=== PATIENT | female | born 1975 | race Caucasian/White ===

== ENCOUNTER 2018-01-09 09:49 | Emergency (ER) | payer MEDICARE ==
[~2018-01-09] VITALS: Ht 165.1 cm; Wt 65.8 kg
[~2018-01-09 09:49] MED LIST: HYDR1TAB10 PO; LEVO500T59 PO; NAPR-514 PO
--- NOTE | 2018-01-09 10:34 | PHYS DOC ---
Past History Past Medical History: Anxiety, Bipolar, Schizophrenia Past Surgical History: Tubal ligation Alcohol Use: None Drug Use: None Adult General Chief Complaint Chief Complaint: BACK PAIN OR INJURY [facility] HPI 42-year-old female presents with thoracic back pain for the last 2 months. Patient states that it is getting worse. She does not think there was any trauma or inciting event. She describes the pain as a cramping sensation lateral to T8 on the right. She denies chest pain, shortness of breath, fever, chills. She states it is very painful but says it does not interfere with her life. She is still able to exercise by running. She has no other complaints. Review of Systems Review of Systems Constitutional: Denies fever or chills [] Eyes: Denies change in visual acuity, redness, or eye pain [] HENT: Denies nasal congestion or sore throat [] Respiratory: Denies cough or shortness of breath [] Cardiovascular: No additional information not addressed in HPI [] GI: Denies abdominal pain, nausea, vomiting, bloody stools or diarrhea [] : Denies dysuria or hematuria [] Musculoskeletal: Lateral right thoracic pain[] Integument: Denies rash or skin lesions [] Neurologic: Denies headache, focal weakness or sensory changes [] Endocrine: Denies polyuria or polydipsia [] All other systems were reviewed and found to be within normal limits, except as documented in this note. Allergies Allergies Allergies Coded Allergies Type Severity Reaction Last Updated Verified hydrocodone Allergy Unknown 03/12/15 Yes Physical Exam Physical Exam Constitutional: Well developed, well nourished, no acute distress, non-toxic appearance. [] HENT: Normocephalic, atraumatic, bilateral external ears normal, oropharynx moist, no oral exudates, nose normal. [] Eyes: PERRLA, EOMI, conjunctiva normal, no discharge. [] Neck: Normal range of motion, no tenderness, supple, no stridor. [] Cardiovascular:Heart rate regular rhythm, no murmur [] Lungs & Thorax: Bilateral breath sounds clear to auscultation. Mild tenderness to the eighth rib distribution. No obvious deformity [] Abdomen: Bowel sounds normal, soft, no tenderness, no masses, no pulsatile masses. [] Skin: Warm, dry, no erythema, no rash. [] Back: No tenderness, no CVA tenderness. [] Extremities: No tenderness, no cyanosis, no clubbing, ROM intact, no edema. [] Neurologic: Alert and oriented X 3, normal motor function, normal sensory function, no focal deficits noted. [] Psychologic: Affect normal, judgement normal, mood normal. [] Current Patient Data Vital Signs Vital Signs Date Time Temp Pulse Resp B/P (MAP) Pulse Ox O2 Delivery O2 Flow Rate FiO2 01/09/18 10:08 98.7 79 20 98 Room Air EKG EKG [] Radiology/Procedures Radiology/Procedures RIBS RIGHT AND PA CHEST History: RT SIDED PAIN INCREASING, NO KNOWN INJURY Comparison: July 17, 2015 chest radiographs Findings: Single view of the chest and 2 additional views right ribs are submitted. There is no infiltrate, pleural fluid, pneumothorax. No displaced right rib fracture is identified. Heart size is stable, within normal limits. Impression: 1. No acute radiographic abnormality is identified. Electronically signed by: Enrique Gonzalez MD (01/09/2018 11:01 AM) [id number] [] Course & Med Decision Making Course & Med Decision Making Pertinent Labs and Imaging studies reviewed. (See chart for details) Asians x-rays are negative for fracture or malalignment. It sounds as patient is having some kind of muscle spasms in this area of her body. We will try Flexeril to see if this helps. I have also advised that she establish with a PCP and consider physical therapy if necessary. [] Dragon Disclaimer Dragon Disclaimer This electronic medical record was generated, in whole or in part, using a voice recognition dictation system. Departure Departure: Referrals: STEF DORMAN MD (PCP) Scripts Cyclobenzaprine Hcl (CYCLOBENZAPRINE HCL) 10 Mg Tablet 1 TAB PO TID PRN for MUSCLE SPASMS MDD 30 tabs, #30 TAB Prov: DAMIÁN FITZPATRICK DO 01/09/18 DAMIÁN FITZPATRICK DO January 09, 2018 10:33
--- NOTE | 2018-01-09 11:05 | RAD ---
RIBS RIGHT AND PA CHEST History: RT SIDED PAIN INCREASING, NO KNOWN INJURY Comparison: July 17, 2015 chest radiographs Findings: Single view of the chest and 2 additional views right ribs are submitted. There is no infiltrate, pleural fluid, pneumothorax. No displaced right rib fracture is identified. Heart size is stable, within normal limits. Impression: 1. No acute radiographic abnormality is identified. Electronically signed by: Enrique Gonzalez MD (01/09/2018 11:01 AM) [facility]
[2018-01-09] MEDS ORDERED: CYCL-331 PO (11:08)
[2018-01-09 11:13] VITALS: BP 109/64
== END 2018-01-09 11:16 | disposition home or self-care (01) ==
LOC: ER 09:49
DX: M62.830 Muscle spasm of back (principal); M54.6 Pain in thoracic spine; R07.81 Pleurodynia; F41.9 Anxiety disorder, unspecified; F20.9 Schizophrenia, unspecified; F31.9 Bipolar disorder, unspecified; Z88.5 Allergy status to narcotic agent
CPT/HCPCS: 71101; 99284

== ENCOUNTER 2018-01-22 23:55 | Emergency (ER) | payer MEDICARE ==
[~2018-01-22] VITALS: Ht 166.4 cm; Wt 65.0 kg
[~2018-01-22 23:55] MED LIST changes: +CYCL-331 PO
--- NOTE | 2018-01-22 23:57 | ED.ADGEN ---
Past History Past Medical History: Anxiety, Bipolar, Schizophrenia Past Surgical History: Tubal ligation Alcohol Use: None Drug Use: None Adult General Chief Complaint Chief Complaint ".. My feet have been hurting for about a year.. they just hurt worse tonight.. and I am lock out [address] [address] I paid my rent...".." It raining out side..." HPI HPI Patient is a 42 year old female who presents with above hx and complaints generalized bilateral foot pain for past year. Pt. states pain is worse tonight. Distal neurovascular intact. Capillary refill less than 2 seconds. Dorsal Pedia and posterior pedal pulses are intact. Pt. denies any trauma. Patient denies any travel, or specific ill contacts. Patient denies any history of immunosuppression. Patient localizes pain primarily on arch and feet. Patient does not follow currently with her primary care. Patient does smoke heavily. Patient's primary concern tonight is she is locked out of her Apt. Pt. has past medical hx of Bipolar, Schizophrenia and Anxiety disorder. Review of Systems Review of Systems Constitutional: Denies fever or chills [] Eyes: Denies change in visual acuity, redness, or eye pain [] HENT: Denies nasal congestion or sore throat [] Respiratory: Denies cough or shortness of breath [] Cardiovascular: No additional information not addressed in HPI [] GI: Denies abdominal pain, nausea, vomiting, bloody stools or diarrhea [] : Denies dysuria or hematuria [] Musculoskeletal: Denies back pain or joint pain []Except complaints of bilateral foot pain. Integument: Denies rash or skin lesions [] Neurologic: Denies headache, focal weakness or sensory changes [] Endocrine: Denies polyuria or polydipsia [] All other systems were reviewed and found to be within normal limits, except as documented in this note. Family History Family History Noncontributory Current Medications Current Medications Current Medications Medications (Trade) Dose Ordered Sig/Andrew Start Time Stop Time Status Last Admin Dose Admin Ibuprofen (Motrin) 400 mg 1X ONCE 01/23/18 00:30 01/23/18 00:31 DC 01/23/18 01:37 400 MG Allergies Allergies Allergies Coded Allergies Type Severity Reaction Last Updated Verified hydrocodone Allergy Unknown 03/12/15 Yes Physical Exam Physical Exam Constitutional: no acute distress, non-toxic appearance. [] HENT: Normocephalic, atraumatic, bilateral external ears normal, oropharynx moist, no oral exudates, nose normal. []Poor dentition. Eyes: PERRLA, EOMI, conjunctiva normal, no discharge. [] Neck: Normal range of motion, no tenderness, supple, no stridor. [] Cardiovascular:Heart rate regular rhythm, no murmur [] Lungs & Thorax: Bilateral breath sounds equal with scattered wheezes on auscultation [] Abdomen: Bowel sounds normal, soft, no tenderness, no masses, no pulsatile masses. [] Skin: Warm, dry, no erythema, no rash. [] Back: No tenderness, no CVA tenderness. [] Kyphosis. Extremities: No tenderness, no cyanosis, no clubbing, ROM intact, no edema. [] Except noted foot exam. Neurologic: Alert and oriented X 3, normal motor function, normal sensory function, no focal deficits noted. [] Psychologic: Affect normal, judgement normal, mood normal. [] EKG EKG [] Radiology/Procedures Radiology/Procedures My interpretation of bilateral foot films shows no foreign body or acute fractures.[] Course & Med Decision Making Course & Med Decision Making Pertinent Labs and Imaging studies reviewed. (See chart for details). Patient follow-up primary care. Patient return if any concerns. Patient take ibuprofen 400 mg up to 4 times a day with food for foot pain. Patient wear arch supports. Encourage pt to stop smoking. [] Final Impression Final Impression 1. Foot Pain- Plantar Fascitis 2. Tob. Abuse 3. Anxiety Hx. 4. Bipolar 5. Schizophrenia Dragon Disclaimer Dragon Disclaimer This electronic medical record was generated, in whole or in part, using a voice recognition dictation system. FERNANDO CHAES MD Jan 22, 2018 23:57
[2018-01-23] MEDS ORDERED: IBUPROFEN 400 MG TABLET. PO ONE (00:30)
[2018-01-23 01:15] VITALS: BP 121/84
--- NOTE | 2018-01-23 08:41 | RAD ---
Indication: Bilateral foot pain TECHNIQUE: 3 views of the bilateral foot COMPARISON: None FINDINGS: Left side: No acute fracture or dislocation. Small plantar calcaneal spur is seen. No soft tissue abnormality. No joint space narrowing or productive changes to suggest arthritis. Right side: No acute fracture or dislocation. Small plantar calcaneal spur. No soft tissue abnormality. No joint space narrowing or productive changes to suggest arthritis. IMPRESSION: No acute findings. Mild bilateral hallux valgus deformity. Electronically signed by: Tico Summers DO (01/23/2018 8:37 AM) [facility]
== END 2018-01-23 01:45 | disposition home or self-care (01) ==
LOC: ER 23:55
DX: M72.2 Plantar fascial fibromatosis (principal); F41.9 Anxiety disorder, unspecified; F20.9 Schizophrenia, unspecified; F31.9 Bipolar disorder, unspecified; Z88.5 Allergy status to narcotic agent
CPT/HCPCS: 73630; 99284

== ENCOUNTER 2019-08-31 14:40 | Emergency (ER) | payer SELFPAY | END 2019-08-31 15:27 | disposition home or self-care (01) | LOC: ER 14:40 | DX: M79.676 Pain in unspecified toe(s) (principal); Z53.21 Procedure and treatment not carried out due to patient leaving prior to being seen by health care provider ==

== ENCOUNTER → 2020-01-24 | Outpatient (CLI) | payer SELFPAY | END | disposition home or self-care (01) | LOC: LAB 12:45 | PROVIDERS: ATTEND Podiatrist Foot & Ankle Surgery | DX: Z01.818 Encounter for other preprocedural examination (principal); Z11.59 Encounter for screening for other viral diseases | CPT/HCPCS: C9803; U0003; 87299 ==

== ENCOUNTER → 2020-05-07 | Outpatient (CLI) | payer MEDICARE ==
--- NOTE | 2020-05-07 16:37 | RAD ---
Three-view right foot study Clinical indications: Right foot pain. Postop study of 12 weeks. FINDINGS: Arthrodesis with metallic screws are seen involving the first metatarsal phalangeal joint. No complete osseous fusion of the joint space is seen yet. No lytic process or acute fracture or dislocation is seen. No periosteal reaction is evident. Moderate-sized plantar spur the calcaneus is seen. IMPRESSION: 12 weeks postop arthrodesis of the first metatarsal phalangeal joint. No complete osseous fusion is seen yet. No acute abnormality is evident. Electronically signed by: Ryan Ace MD (05/07/2020 4:34 PM) [id number]
== END | disposition home or self-care (01) ==
LOC: DXRAD 10:44
PROVIDERS: ATTEND Podiatrist Foot & Ankle Surgery
DX: M19.071 Primary osteoarthritis, right ankle and foot (principal); M77.31 Calcaneal spur, right foot
CPT/HCPCS: 73630

== ENCOUNTER → 2020-06-17 | Outpatient (CLI) | payer MEDICARE ==
--- NOTE | 2020-06-17 12:07 | RAD ---
EXAM: Right foot, 3 views. HISTORY: Pain. COMPARISON: 04/17/2020 FINDINGS: 3 views of the right foot are obtained. There is instrumented fusion of the first metatarsal phalangeal joint with 3 screws. There is associated degenerative and postoperative cortical irregularly along the joint space. There is no evidence of instrumentation loosening. There is a small plantar spur. There is dorsal forefoot soft tissue swelling. IMPRESSION: 1. Stable findings consistent with first metatarsal phalangeal joint arthrodesis. 2. Forefoot soft tissue swelling. Electronically signed by: Dulce Lizarraga MD (06/17/2020 12:04 PM) [id number]
== END ==
LOC: DXRAD 10:45
PROVIDERS: ATTEND Podiatrist Foot & Ankle Surgery
DX: M79.671 Pain in right foot (principal); M79.89 Other specified soft tissue disorders; Z98.1 Arthrodesis status
CPT/HCPCS: 73630

== ENCOUNTER → 2020-10-22 | Outpatient (CLI) | payer MEDICARE ==
--- NOTE | 2020-10-22 09:12 | EKG ---
[address] [address] Test Date: 2020-10-22 Test Time: 09:01:46 Pat Name: BERRY UMANA Department: Room: Gender: F Metal Coater: SERGIO : 1975 Requested By: STAFF NON Order Number: [id number] Reading MD: Roldan Bonilla MD Measurements Intervals [place] Rate: 82 P: 38 HI: 142 QRS: 12 QRSD: 80 T: 36 QT: 392 QTc: 461 Interpretive Statements SINUS RHYTHM Electronically Signed On 10-22-2020 13:28:39 [employer] by Roldan Bonilla MD
[2020-10-22 09:58] LABS: BASO % 0 % (0-3); EOS # 0.3 x10^3/uL (0.0-0.7); EOS % 3 % (0-3); HEMATOCRIT 41.1 % (36.0-47.0); HEMOGLOBIN 13.5 g/dL (12.0-15.5); LYMPH # 2.1 x10^3/uL (1.0-4.8); LYMPH % 19 % (24-48); MEAN CORPUSCULAR HEMOGLOBIN 31 pg (25-35); MEAN CORPUSCULAR HGB CONC 33 g/dL (31-37); MEAN CORPUSCULAR VOLUME 94 fL (79-100); MONO # 1.3 x10^3/uL (0.0-1.1); MONO % 12 % (0-9); NEUT # 7.2 x10^3uL (1.8-7.7); NEUT % 66 % (31-73); PLATELET COUNT 316 x10^3/uL (140-400); RED BLOOD COUNT 4.39 x10^6/uL (3.50-5.40); RED CELL DISTRIBUTION WIDTH 13.5 % (11.5-14.5); WHITE BLOOD COUNT 10.9 x10^3/uL (4.0-11.0)
[2020-10-22 13:41] LABS: CREATININE 0.9 mg/dL (0.6-1.0); GFR 68.3; POTASSIUM 4.9 mmol/L (3.5-5.1)
== END ==
LOC: LAB 08:44
PROVIDERS: ATTEND Podiatrist Foot & Ankle Surgery
DX: Z01.810 Encounter for preprocedural cardiovascular examination (principal); M19.071 Primary osteoarthritis, right ankle and foot
CPT/HCPCS: 36415; 80048; 85025; 93005

== ENCOUNTER → 2020-11-03 | Outpatient (CLI) | payer MEDICARE | LOC: LAB 13:34 | PROVIDERS: ATTEND Podiatrist Foot & Ankle Surgery | DX: Z11.59 Encounter for screening for other viral diseases (principal) | CPT/HCPCS: U0003 ==

== ENCOUNTER → 2021-08-03 | Outpatient (CLI) | payer MEDICARE ==
[~2021-08-03] MED LIST changes: -CYCL-331 PO; +CYCL10TA19 PO
--- NOTE | 2021-08-04 09:21 | CARD ---
MR#: [id number] Date of Study: 08/03/2021 Ordering Physician: NINO OLIVARES, Referring Physician: NINO OLIVARES, Tech: Shaila Davis [facility] APPROVED REPORT EXAM: Two-dimensional and M-mode echocardiogram with Doppler and color Doppler. Other Information Quality : AverageHR: 85bpm INDICATION Dyspnea Chest Pain RISK FACTORS Hypertension Smoking 2D DIMENSIONS RVDd3.4 (2.9-3.5cm)Left Atrium(2D)3.4 (1.6-4.0cm) IVSd1.3 (0.7-1.1cm)Aortic Root(2D)3.2 (2.0-3.7cm) LVDd4.2 (3.9-5.9cm)LVOT Diameter2.0 (1.8-2.4cm) PWd1.1 (0.7-1.1cm)LVDs2.8 (2.5-4.0cm) FS (%) 32.3 %SV47.7 ml Aortic Valve AoV Peak Julius.134.1cm/sAoV VTI27.8cm AO Peak GR.7.2mmHgLVOT Peak Julius.130.8cm/s LVOT VTI 25.47cmAO Mean GR.4mmHg FRANCIA (VMAX)3.70gr9PFV (VTI)2.89cm2 AI P 1/2 Ntzs810ew Mitral Valve MV E Hhxqleeb63.3cm/sMV E Peak Gr.3mmHg MV DECEL FMCK322siUV A Pmehszuf26.5cm/s MV E Mean Gr.1mmHgE/A Ratio1.4 Pulmonary Valve PV Peak Xznzytda14.4cm/sPV Peak Grad.3mmHg Tricuspid Valve TR P. Cpuvtpbh264ze/sRAP ZSEFTPIO2mrOe TR Peak Gr.01plJqKRKZ41avLu Pulmonary Vein S1 Kibrnpky57.1cm/sD2 Benuqbij58.2cm/s LEFT VENTRICLE The left ventricle is normal size. There is mild concentric left ventricular hypertrophy. The left ve ntricular systolic function is normal and the ejection fraction is within normal range. The Ejection Fraction is 50-55%. There is normal LV segmental wall motion. The left ventricular diastolic function and filling is normal for age. RIGHT VENTRICLE The right ventricle is normal size. There is normal right ventricular wall thickness. The right ventr icular systolic function is normal. ATRIA The left atrium size is normal. The right atrium size is normal. The interatrial septum is intact wit h no evidence for an atrial septal defect or patent foramen ovale as noted on 2-D or Doppler imaging. AORTIC VALVE The aortic valve is normal in structure and function. Doppler and Color Flow revealed trace aortic re gurgitation. There is no significant aortic valvular stenosis. Calculated aortic valve area is 3.2 cm 2 with maximum pressure gradient of 7 mmHg and mean pressure gradient of 4 mmHg. MITRAL VALVE The mitral valve is normal in structure and function. There is no evidence of mitral valve prolapse. There is no mitral valve stenosis. Doppler and Color Flow revealed no mitral valve regurgitation note d. TRICUSPID VALVE The tricuspid valve is normal in structure and function. Doppler and Color Flow revealed trace tricus pid regurgitation with an estimated PAP of 32 mmHg. There is no tricuspid valve stenosis. PULMONIC VALVE The pulmonary valve is normal in structure and function. Doppler and Color Flow revealed trace pulmon ic valvular regurgitation. GREAT VESSELS The aortic root is normal in size. The IVC is normal in size and collapses >50% with inspiration. PERICARDIAL EFFUSION There is no evidence of significant pericardial effusion. Critical Notification Critical Value: No <Conclusion> The left ventricle is normal size. The left ventricular systolic function is normal and the ejection fraction is within normal range. The Ejection Fraction is 50-55%. There is normal LV segmental wall motion. There is mild concentric left ventricular hypertrophy. Doppler and Color Flow revealed trace aortic regurgitation. There is no significant aortic valvular stenosis. Calculated aortic valve area is 3.2 cm2 with maximum pressure gradient of 7 mmHg and mean pressure gr adient of 4 mmHg. Doppler and Color Flow revealed no mitral valve regurgitation noted. Doppler and Color Flow revealed trace tricuspid regurgitation with an estimated PAP of 32 mmHg. Signed by : Tony Muñoz MD Electronically Approved : 08/04/2021 09:21:11
== END ==
LOC: ECHO 07:50
PROVIDERS: ATTEND Internal Medicine Cardiovascular Disease
DX: I51.7 Cardiomegaly (principal); I20.0 Unstable angina; R06.00 Dyspnea, unspecified
CPT/HCPCS: 93306

== ENCOUNTER → 2021-08-04 | Outpatient (CLI) | payer MEDICARE ==
[~2021-08-04] VITALS: Ht 167.6 cm; Wt 91.6 kg
[~2021-08-04] MED LIST changes: +REGADENOSON 0.4 MG/5 ML DISP.SYRIN. IV ONE
--- NOTE | 2021-08-04 18:48 | RAD ---
MR#: [id number] Date of Study: 08/04/2021 Ordering Physician: NINO OLIVARES, Referring Physician: ZACHERY LONGORIA Tech: ROM Garcia ARRT (R) (N) APPROVED REPORT Test Type: Pharmacological Stress Nurse/Tech: SABINE Yang Cardiac History: See Electronic Medical Record Medications: See Electronic Medical Record Medical History: See Electronic Medical Record Resting ECG: SR Resting Heart Rate: 73 bpm Resting Blood Pressure: 129/75mmHg Pretest Chest Pain: None Nurse/Tech Notes SR Consent: The procedure was explained to the patient in lay terms. Informed consent was witnessed. Michael eout was entered into [email or web address]. History and Stress Test performed by ROM Garcia ARRT (Sammie) (N) Pharm. Details Pharmacologic stress testing was performed using 0.4mg per 5ml of regadenoson given intravenously ove r 7-10 seconds. Stress Symptoms No chest pain or symptoms. POST EXERCISE Reason for Termination: Infusion complete Target HR: No Max HR: 104 bpm 69% of Maximum Predicted HR: 149 bpm Exercise duration: 6 min:sec, Stage Max Blood Pressure: 141/82mmHg Blood Pressure response to exercise: Normal blood pressure response during stress. Chest Pain: No. Arrhythmia: No. ST Change: No. INTERPRETATION Stress EKG Conclusion: The resting EKG shows a sinus rhythm with nonspecific ST segment changes. The stress EKG shows no significant changes from baseline. No EKG evidence of stress-induced ischemia. Imaging Protocol IMAGE PROTOCOL: Rest Tc-99m/stress Tc-99m 1 day Rest: Stress: Viability: Radiopharm.Tc99m ImftbwlirZz76c Sestamibi Lqwh75mUv 31mCi Img Date 08/04/2021 08/04/2021 Inj-Img Zkml69hpe. 60min. Rest Admin Site:IV - Right HandAdministrator: ROM Garcia ARRT (R)(N) Stress Admin Site: IV - Right HandAdministrator: ROM Garcia ARRT (R)(N) STRESS DATA End Diast. Vol.89.0mlAv. Heart Rate93.0bpm End Syst. Vol.14.0mlCO Index BSA7.0L/min Myocardial Tagk220.0gEject. Yclizcgx27.0% Stress Rates Pk. Fill Rate3.71EDV/secLVtime Pk. Fill 110.85msec Pk. Empty Rate4.53ESV/secLVtime Pk. Vqmyf353.47msec 1/3 Pk. Fill1.85EDV/sec Stress Scores Regional WT3.00Summed WT12.00 Regional WM0.00Summed WM0.00 LV Perfusion The stress scans showed no significant defects. The rest scans showed no significant defects. Nuclear imaging shows no reversible ischemia or infarct. Wall Motion Left ventricular systolic function is normal with an ejection fraction of greater than 70%. LV Perf. Quant 17 Seg. SSS0.00 17 Seg. SRS0.00 17 Seg. SDS0.00 Stress Defect Extent (% LAD)0.00Rest Defect Extent (% LAD)0.00Rev. Defect Extent (% LAD)0.00 Stress Defect Extent (% LCX) 0.00Rest Defect Extent (% LCX)0.00Rev. Defect Extent (% LCX)0.00 Stress Defect Extent (% RCA)0.00Rest Defect Extent (% RCA)0.00Rev. Defect Extent (% RCA)0.00 Stress Defect Extent (% JABIER)0.00Rest Defect Extent (% JABIER)0.00Rev. Defect Extent (% JABIER)0.00 Conclusion 1. No EKG evidence of stress-induced ischemia. 2. Nuclear imaging shows no reversible ischemia or infarct. 3. Normal left ventricular systolic function with an ejection fraction of greater than 70%. 4. Low risk Lexiscan nuclear stress test. Signed by : Tony Muñoz MD Electronically Approved : 08/04/2021 18:47:48
== END ==
LOC: NM 07:53
PROVIDERS: ATTEND Internal Medicine Cardiovascular Disease
DX: R06.00 Dyspnea, unspecified (principal); I20.0 Unstable angina
CPT/HCPCS: 78452; 93017; A9500; J2785